=== PATIENT | male | born 1960 | race Caucasian/White ===

== ENCOUNTER 2021-04-10 14:03 | Observation (INO) | payer MEDICARE ==
[2021-04-10] MEDS ORDERED: Sodium Chloride 0.9% 1000 ML 1,000 ML IV STA ×2 (14:06→15:27)
[2021-04-10] MEDS ORDERED: Sodium Chloride 0.9% 1000 ML 1,000 ML ONE ×2 (14:16→15:32)
[2021-04-10 14:30] LABS: INR 1.14 (0.8-3.0); PROTIME 13.4 SECONDS (9.4-12.5)
[2021-04-10 14:31] LABS: Hemoglobin 16.6 gm/dl (12.5-18.0); Mean Cell Volume 89.4 fl (78-100); Mean Corpuscular Hemoglobin 31.6 pg (26-32); Mean Corpuscular Hgb Concent. 35.3 g/dl (32-36); Mean Platelet Volume 10.7 fl (7.5-11.0); Platelet Count 258 K/mm3 (150-450); Red Blood Count 5.26 M/mm3 (4.1-5.6); Red Cell Distribution Width 12.6 % (11.5-14.0); White Blood Count 8.9 K/mm3 (4.0-10.5)
[2021-04-10 14:33] LABS: PTT 32.1 SECONDS (25.1-36.5)
--- NOTE | 2021-04-10 14:42 | XRAY ---
Indication: Positive Covid 19. Comparison: None Portable chest demonstrates diffuse bilateral patchy airspace disease without consolidation/large effusion. Remaining heart and bony thorax normal.
[2021-04-10 14:43] LABS: ALBUMIN 3.9 g/dL (3.5-5.0); ANION GAP 16.5 MEQ/L (5-15); BILIRUBIN,TOTAL 0.9 mg/dL (0.2-1.3); Calcium 9.6 mg/dL (8.4-10.2); Creatinine 1 1.32 mg/dL (0.66-1.25); EST GLOMERULAR FILTRATION RATE 58.4 ML/MIN; NT PRO BNP 91.5 pg/mL (0-900); Potassium 4.4 mmol/L (3.5-5.1); Total Protein 7.3 g/dL (6.3-8.2)
[2021-04-10 14:54] LABS: Lymphocytes 4 % (24-44); Monocyte 3 % (0.0-12.0); Neutrophils 93 % (36.-66.); Platelet Estimate NORMAL (NORMAL); Total Cells Counted 100
--- NOTE | 2021-04-10 15:06 | ERPHSYRPT ---
- History of Present Illness Source: patient Exam Limitations: no limitations Patient Subjective Stated Complaint: SOB Triage Nursing Assessment: Patient brought back to ED via w/c and transferred to bed per self. Patient A+O X3. Patient's skin flushed, warm and dry. Patient complains of SOB, fever, cough, bodyaches, headaches and fatigue since last week. Patient took home binax covid test on 04/03/2021 which was positive. [facility] and initial sat was 85% on room air. Patient placed on 4 liters per N/C at [facility]. lungs clear a/p timur. Physician History: 61 yo wm w +CV19 test at home sent from infusion clinic for low sats. Pt has had fever/cough/minimal coryza/N/V/D/myalgias. He is unvaccinated and has had symptoms x9 days. Pt has DM/HTN. Timing/Duration: other (9 days) Possible Cause: no prior episodes Modifying Factors: Improves With: activity, coughing Associated Symptoms: fever, chills, cough, headache, muscle aches, nasal congestion, nasal drainage, shortness of breath, sore throat, No dizziness, No earache, No facial pain, No lightheadedness Allergies/Adverse Reactions: No Known Drug Allergies Allergy (Unverified 09/23/17 14:13) Home Medications: Celecoxib [Celebrex] 200 mg PO DAILY 09/23/17 [History] Duloxetine HCl [Cymbalta] 30 mg PO DAILY 09/23/17 [History] Gabapentin 300 mg PO DAILY 09/23/17 [History] Lisinopril 10 mg [Zestril 10 MG] 10 mg PO DAILY 09/23/17 [History] Metoprolol Succinate 100 mg PO DAILY 09/23/17 [History] PANTOPRAZOLE 40 mg Tablet [Protonix 40MG Tablet] 40 mg PO DAILY 09/23/17 [History] Sildenafil Citrate [Viagra] 100 mg PO UD 09/23/17 [History] Tizanidine HCl 4 mg [Zanaflex 4 MG] 4 mg PO HS 09/23/17 [History] Hx Influenza Vaccination/Date Given: No Hx Pneumococcal Vaccination/Date Given: No Immunizations Up to Date: Yes Travel Risk - International Travel Have you traveled outside of the country in past 3 weeks: No - Coronavirus Screening Are you exhibiting any of the following symptoms?: Yes Symptoms: Fever, Cough: New Onset, Shortness of Breath, Vomiting/Diarrhea, Head aches/Body Aches/Fatigue Close contact with a COVID-19 positive Pt in past 14-21 Days: No - Vaccine Status Have you recieved a Covid-19 vaccination: No - Review of Systems Constitutional: No Symptoms, Fever, Chills, Fatigue, Lethargy Eyes: No Symptoms Ears, Nose, & Throat: No Symptoms, Nose Congestion, Nose Discharge, Throat Pain Respiratory: No Symptoms, Cough, Dyspnea, Dyspnea on Exertion (DE JESUS) Cardiac: No Symptoms Abdominal/Gastrointestinal: No Symptoms, Nausea, Vomiting, Diarrhea Genitourinary Symptoms: No Symptoms Musculoskeletal: No Symptoms, Arthralgias, Myalgias Skin: No Symptoms Neurological: No Symptoms Psychological: No Symptoms Endocrine: No Symptoms Hematologic/Lymphatic: No Symptoms Immunological/Allergic: No Symptoms - Past Medical History Pertinent Past Medical History: Yes Neurological History: No Pertinent History ENT History: No Pertinent History Cardiac History: High Cholesterol, Hypertension Respiratory History: No Pertinent History Endocrine Medical History: Diabetes Type II Musculoskeletal History: No Pertinent History GI Medical History: No Pertinent History History: No Pertinent History Psycho-Social History: Depression Male Reproductive Disorders: No Pertinent History - Past Surgical History Past Surgical History: Yes Neuro Surgical History: No Pertinent History Cardiac: No Pertinent History Respiratory: No Pertinent History Gastrointestinal: No Pertinent History Genitourinary: No Pertinent History Musculoskeletal: Orthopedic Surgery Male Surgical History: No Pertinent History Other Surgical History: disc replaced in neck 2008. shattered heal 5 years ago - Social History Smoking Status: Never smoker Exposure to second hand smoke: No Drug Use: marijuana Patient Lives Alone: No Significant Family History: no pertinent family hx - Nursing Vital Signs Nursing Vital Signs: Initial Vital Signs Temperature 99.8 F 04/10/21 14:06 Pulse Rate 92 H 04/10/21 14:06 Respiratory Rate 21 04/10/21 14:06 O2 Sat by Pulse Oximetry 95 04/10/21 14:06 Pain Scale Pain Intensity 0 WNL - Physical Exam General Appearance: no apparent distress Eye Exam: PERRL/EOMI, eyes nml inspection Ears, Nose, Throat Exam: normal ENT inspection, TMs normal, pharynx normal, moist mucous membranes Neck Exam: normal inspection, non-tender, supple, full range of motion, No meningismus, No mass, No Brudzinski, No Kernig's Respiratory Exam: airway intact, crackles/rales (Scattered), No respiratory distress Cardiovascular Exam: regular rate/rhythm, normal heart sounds, normal peripheral pulses, No murmur Gastrointestinal/Abdomen Exam: soft, normal bowel sounds, No tenderness Back Exam: normal inspection Extremity Exam: normal inspection, normal range of motion Neurologic Exam: alert, oriented x 3, cooperative, fire chief II-XII nml as tested, normal mood/affect, nml cerebellar function, nml station & gait, sensation nml, No motor deficits, No sensory deficit Skin Exam: normal color, warm, dry Lymphatic Exam: No adenopathy SpO2 Interpretation: normal SpO2: 95 O2 Delivery: Nasal Cannula - Course Nursing assessment & vital signs reviewed: Yes EKG Interpreted by Me: RATE (NSR/R91/Normal QT-QTc/No acute ST segment changes) - Radiology Exams Chest X-ray Interpretation: Discussed w/ radiologist (Patchy B airspace dz) Ordered Tests: Active Orders 24 hr Category Date Time Status EKG-ER Only STAT Care 04/10/21 14:06 Completed IV Insertion STAT Care 04/10/21 14:06 Completed Consistent Carbohydrate Diet 2000 Calorie Diet 04/10/21 Dinner Active CHEST 1 VIEW (PORTABLE) Routine Exams 04/11/21 16:15 Stop Req CHEST 1 VIEW (PORTABLE) Stat Exams 04/10/21 14:07 Completed CBC W DIFF AM.LAB Lab 04/11/21 04:00 Ordered CBC W DIFF Stat Lab 04/10/21 14:15 Completed CMP AM.LAB Lab 04/11/21 04:00 Ordered CMP Stat Lab 04/10/21 14:15 Completed D-DIMER QUANTITATIVE Stat Lab 04/10/21 14:15 Completed Lactic Acid Stat Lab 04/10/21 14:09 Completed Manual Differential NC Stat Lab 04/10/21 14:15 Completed NT PRO BNP Stat Lab 04/10/21 14:15 Completed PROTIME WITH INR Stat Lab 04/10/21 14:15 Completed PTT Stat Lab 04/10/21 14:15 Completed TROPONIN Q3H Lab 04/10/21 14:15 Completed TROPONIN Q3H Lab 04/10/21 18:15 Ordered TROPONIN Q3H Lab 04/10/21 21:15 Ordered TROPONIN Q3H Lab 04/11/21 00:15 Ordered TROPONIN Q3H Lab 04/11/21 03:15 Ordered UA W/RFX UR CULTURE Routine Lab 04/10/21 16:01 Ordered Respiratory Therapy Consult ROUTINE RT 04/10/21 16:00 Completed Transfer Order Routine Transfer 04/10/21 Completed Medication Summary Generic Name Dose Route Start Last Admin Trade Name Freq PRN Reason Stop Dose Admin Acetaminophen 650 mg 04/10/21 16:00 Tylenol 325 Mg PO 05/10/21 15:59 Q4H PRN PRN PAIN AND/OR FEVER Albuterol Sulfate 4 puff 04/10/21 19:00 Ventolin Common Canister IH 05/10/21 18:59 QIDRT [facility] Dexamethasone Sodium Phosphate 6 mg 04/11/21 10:00 Decadron 10mg Inj. IV 05/11/21 09:59 DAILY [facility] Enoxaparin Sodium 40 mg 04/11/21 10:00 Enoxaparin Sodium SQ 05/11/21 09:59 DAILY [facility] Famotidine 20 mg 04/10/21 22:00 Pepcid 20 Mg Vial IV 05/10/21 21:59 Q12HT RODO Remdesivir 200 mg/ Sodium 250 mls @ 125 mls/hr 04/10/21 16:04 Chloride IV 04/10/21 18:03 ONCE ONE Remdesivir 100 mg/ Sodium 100 mls @ 100 mls/hr 04/11/21 16:04 Chloride IV 04/14/21 17:03 Q24H [facility] Sodium Chloride 1,000 mls @ 100 mls/hr 04/10/21 16:15 Sodium Chloride 0.9% 1000 Ml IV 05/10/21 16:14 .Q10H RODO Insulin Human Lispro 0 unit 04/10/21 16:00 Humalog SQ 05/10/21 15:59 UD PRN HYPERGLYCEMIA Ipratropium [place] 2 gm 04/10/21 16:00 Atrovent Hfa Mdi IH 05/10/21 15:59 UD RODO Ondansetron HCl 4 mg 04/10/21 16:00 Zofran 4 Mg/2 Ml Vial IV 05/10/21 15:59 Q6H PRN PRN NAUSEA/VOMITING Pantoprazole Sodium 40 mg 04/11/21 10:00 Protonix 40 Mg Iv IV 05/11/21 09:59 Q24H10 RODO Discontinued Medications Generic Name Dose Route Start Last Admin Trade Name [place] PRN Reason Stop Dose Admin Dexamethasone Sodium Phosphate 10 mg 04/10/21 15:26 04/10/21 15:36 Decadron 10mg Inj. IV 04/10/21 15:27 10 mg STAT ONE Administration Dexamethasone Sodium Phosphate Confirm 04/10/21 15:32 Decadron 10mg Inj. Administered 04/10/21 15:33 Dose 10 mg .ROUTE .STK-MED ONE Sodium Chloride 1,000 mls @ 999 mls/hr 04/10/21 14:06 04/10/21 15:25 Sodium Chloride 0.9% 1000 Ml IV 04/10/21 15:06 Infused .Q1H1M STA Infusion Sodium Chloride Confirm 04/10/21 14:16 Sodium Chloride 0.9% 1000 Ml Administered 04/10/21 14:17 Dose 1,000 mls @ ud .ROUTE .STK-MED ONE Sodium Chloride 1,000 mls @ 999 mls/hr 04/10/21 15:27 04/10/21 15:36 Sodium Chloride 0.9% 1000 Ml IV 04/10/21 16:27 999 mls/hr .Q1H1M STA Administration Sodium Chloride Confirm 04/10/21 15:32 Sodium Chloride 0.9% 1000 Ml Administered 04/10/21 15:33 Dose 1,000 mls @ ud .ROUTE .STK-MED ONE Lab/Rad Data: Laboratory Result Diagrams 04/10/21 14:15 04/10/21 14:15 Laboratory Results 04/10/21 04/10/21 04/10/21 Range/Units 15:01 14:15 14:15 WBC (4.0-10.5) K/mm3 RBC (4.1-5.6) M/mm3 Hgb (12.5-18.0) gm/dl Hct (42-50) % MCV (78-100) fl MCH (26-32) pg MCHC (32-36) g/dl RDW (11.5-14.0) % Plt Count (150-450) K/mm3 MPV (7.5-11.0) fl Segmented Neutrophils (36.-66.) % Lymphocytes (Manual) (24-44) % Monocytes (Manual) (0.0-12.0) % Platelet Estimate (NORMAL) RBC Morphology PT 13.4 H (9.4-12.5) SECONDS INR 1.14 (0.8-3.0) APTT 32.1 (25.1-36.5) SECONDS D-Dimer 1163 H* (215-500) ng/mL Sodium (137-145) mmol/L Potassium (3.5-5.1) mmol/L Chloride (98-107) mmol/L Carbon Dioxide (22-30) mmol/L Anion Gap (5-15) MEQ/L BUN (9-20) mg/dL Creatinine (0.66-1.25) mg/dL Estimated GFR ML/MIN Glucose (74-106) mg/dL Lactic Acid (0.4-2.0) Calcium (8.4-10.2) mg/dL Total Bilirubin (0.2-1.3) mg/dL AST (17-59) U/L ALT (0-50) U/L Alkaline Phosphatase (38-126) U/L Troponin I < 0.012 (0.000-0.034) ng/mL NT-Pro-B Natriuret Pep (0-900) pg/mL Serum Total Protein (6.3-8.2) g/dL Albumin (3.5-5.0) g/dL SARS-CoV-2 (PCR) POSITIVE A (NEGATIVE) 04/10/21 04/10/21 04/10/21 Range/Units 14:15 14:15 14:09 WBC 8.9 (4.0-10.5) K/mm3 RBC 5.26 (4.1-5.6) M/mm3 Hgb 16.6 (12.5-18.0) gm/dl Hct 47.0 (42-50) % MCV 89.4 (78-100) fl MCH 31.6 (26-32) pg MCHC 35.3 (32-36) g/dl RDW 12.6 (11.5-14.0) % Plt Count 258 (150-450) K/mm3 MPV 10.7 (7.5-11.0) fl Segmented Neutrophils 93 H (36.-66.) % Lymphocytes (Manual) 4 L (24-44) % Monocytes (Manual) 3 (0.0-12.0) % Platelet Estimate NORMAL (NORMAL) RBC Morphology NORMAL PT (9.4-12.5) SECONDS INR (0.8-3.0) APTT (25.1-36.5) SECONDS D-Dimer (215-500) ng/mL Sodium 135 L (137-145) mmol/L Potassium 4.4 (3.5-5.1) mmol/L Chloride 101 (98-107) mmol/L Carbon Dioxide 22 (22-30) mmol/L Anion Gap 16.5 H (5-15) MEQ/L BUN 35 H (9-20) mg/dL Creatinine 1.32 H (0.66-1.25) mg/dL Estimated GFR 58.4 ML/MIN Glucose 132 H (74-106) mg/dL Lactic Acid 1.2 (0.4-2.0) Calcium 9.6 (8.4-10.2) mg/dL Total Bilirubin 0.90 (0.2-1.3) mg/dL AST 35 (17-59) U/L ALT 17 (0-50) U/L Alkaline Phosphatase 58 (38-126) U/L Troponin I (0.000-0.034) ng/mL NT-Pro-B Natriuret Pep 91.5 (0-900) pg/mL Serum Total Protein 7.3 (6.3-8.2) g/dL Albumin 3.9 (3.5-5.0) g/dL SARS-CoV-2 (PCR) (NEGATIVE) - Progress Progress: improved Progress Note: 04/10/21 15:[address] Roldan 2L NS bolus 10mg IV Decadron Counseled pt/family regarding: lab results, diagnosis, rad results - Departure Departure Disposition: Observation Clinical Impression: COVID-19 Condition: Stable Critical Care Time: No
[2021-04-10] MEDS ORDERED: DECADRON 10MG INJ. IV ONE (15:26)
[2021-04-10] MEDS ORDERED: DECADRON 10MG INJ. ONE (15:32)
[2021-04-10] MEDS ORDERED: Zofran 4 MG/2 ML VIAL IV PRN (16:00)
[2021-04-10] MEDS ORDERED: HUMALOG SQ PRN ×2 (16:00→18:18)
[2021-04-10] MEDS ORDERED: Atrovent HFA MDI IH SCH ×2 (16:00→22:00)
[2021-04-10] MEDS ORDERED: TYLENOL 325 MG PO PRN (16:00)
[2021-04-10] MEDS ORDERED: REMDESIVIR 200 MG in Sodium Chloride 0.9% 250 ML 250 ML IV ONE (16:04)
[2021-04-10] MEDS: celeBREX 100 MG PO SCH (18:07)
[2021-04-10] MEDS: Cymbalta 30 MG Capsule PO SCH (18:07)
[2021-04-10] MEDS: Zestril 10 MG PO SCH (18:08)
[2021-04-10] MEDS: Toprol Xl 100 MG PO SCH (18:08)
[2021-04-10] MEDS ORDERED: TYLENOL EXTRA STRENGTH 500 MG PO PRN (18:09)
[2021-04-10] MEDS ORDERED: Ativan 2 MG/1 ML VIAL IV PRN (18:09)
[2021-04-10] MEDS: ENOXAPARIN SODIUM SQ SCH (18:49)
[2021-04-10] MEDS: Sodium Chloride 0.9% 1000 ML 1,000 ML IV SCH (18:49)
[2021-04-10] MEDS: PROTONIX 40 MG IV IV SCH (18:53)
[2021-04-10] MEDS: Pepcid 20 MG VIAL IV SCH (21:33)
[2021-04-10] MEDS: Zanaflex 4 MG PO SCH ×2 (21:35→21:52)
[2021-04-10] MEDS ORDERED: Lomotil PO PRN (23:12)
[2021-04-11] MEDS: HYDROCODONE-CHLORPHEN ER SUSP PO PRN ×2 (04:37→18:07)
[2021-04-11 05:34] LABS: Hemoglobin 15.2 gm/dl (12.5-18.0); Mean Cell Volume 90.7 fl (78-100); Mean Corpuscular Hemoglobin 31.3 pg (26-32); Mean Corpuscular Hgb Concent. 34.5 g/dl (32-36); Mean Platelet Volume 10.7 fl (7.5-11.0); Platelet Count 297 K/mm3 (150-450); Red Blood Count 4.85 M/mm3 (4.1-5.6); Red Cell Distribution Width 12.6 % (11.5-14.0)
[2021-04-11 05:52] LABS: ALBUMIN 3.3 g/dL (3.5-5.0); ALKALINE PHOSPHATASE 46 U/L (38-126); BLOOD UREA NITROGEN 26 mg/dL (9-20); CHLORIDE 105 mmol/L (98-107); Calcium 8.9 mg/dL (8.4-10.2); Carbon Dioxide 21 mmol/L (22-30); Creatinine 1 0.88 mg/dL (0.66-1.25); EST GLOMERULAR FILTRATION RATE > 60.0 ML/MIN; Glucose 148 mg/dL (74-106); Potassium 4.7 mmol/L (3.5-5.1); SGOT/AST 28 U/L (17-59); SGPT/ALT 15 U/L (0-50); SODIUM 136 mmol/L (137-145); Total Protein 6.4 g/dL (6.3-8.2)
--- NOTE | 2021-04-11 08:46 | XRAY ---
Indication: Positive Covid 19. Comparison: One day earlier. Portable apical lordotic chest unchanged again demonstrating diffuse bilateral patchy airspace disease without consolidation/large effusion. Heart is not enlarged. No new cardiopulmonary abnormalities.
[2021-04-11 08:49] LABS: BAND 1 % (0.0-2.0); Eosinophil 1 % (0.00-3.0); Lymphocytes 12 % (24-44); Monocyte 7 % (0.0-12.0); Neutrophils 79 % (36.-66.); Platelet Estimate NORMAL (NORMAL); Total Cells Counted 100
[2021-04-11] MEDS ORDERED: REMDESIVIR 100 MG in Sodium Chloride 0.9% 100 ML BAG 100 ML IV SCH ×2 (10:00→18:00)
[2021-04-11 10:10] LABS: Appearance CLEAR (CLEAR); Bilirubin NEGATIVE (NEGATIVE); Blood NEGATIVE Ery/ul (0-5); Glucose NEGATIVE (NEGATIVE); Ketones SMALL (NEGATIVE); Leukocyte Esterase NEGATIVE (NEGATIVE); Mucus SLIGHT /HPF (NEGATIVE); Nitrite NEGATIVE (NEGATIVE); Protein,Urine Dip 30 (Negative); Specific Gravity 1.025 (1.005-1.025); Urobilinogen 2 mg/dL (0-1)
[2021-04-11] MEDS: OLUMIANT PO SCH (10:48)
[2021-04-11] MEDS: Zestril 10 MG PO SCH (10:49)
[2021-04-11] MEDS: DECADRON 10MG INJ. IV SCH (10:49)
[2021-04-11] MEDS: Toprol Xl 100 MG PO SCH (10:49)
[2021-04-11] MEDS: Cymbalta 30 MG Capsule PO SCH (10:49)
[2021-04-11] MEDS: ENOXAPARIN SODIUM SQ SCH (10:51)
[2021-04-11] MEDS: PROTONIX 40 MG IV IV SCH (10:51)
--- NOTE | 2021-04-11 11:07 | HP ---
CHIEF COMPLAINT: Shortness of breath, coughing, fever, chills, aching all over. Positive COVID test. HISTORY OF PRESENT ILLNESS: The patient had the above symptoms ever since 04/03/2021. He went to [facility] today for evaluation. Initially, his O2 saturation was 85% and he was placed on 4 liters and sent to the emergency room. He said he has diarrhea daily because he is on Metformin. No real vomiting. He is unvaccinated. He does not particularly where he got it at. CORONAVIRUS SCREENING: He is unvaccinated. VACCINE HISTORY: No influenza. No pneumonia. No COVID. TRAVEL RISK: He has not been out of the country or out of the state really in the last three weeks. No known contact with anybody with COVID. HOME MEDICATIONS: Celebrex 200 q.d., Cymbalta 30 q.d., gabapentin 300 h.s., lisinopril 10 q.d., metoprolol 100 q.d., Protonix 40 q.d., Viagra 100 PRN, Zanaflex 4 mg h.s. ALLERGIES: NKDA. PAST MEDICAL HISTORY: Diabetes mellitus well controlled with diet and Metformin. He has had diabetes for approximately three years, l ost 20 pounds and it is under control now he states with medicine. Arthritis of the neck post-surgery. Some hypertension well controlled. Gastroesophageal reflux disease. Erectile dysfunction. REVIEW OF SYSTEMS: CONSTITUTIONAL: The patient had fever, hypoxia, lethargy, aching, chills. HEENT: Taste is intact. ABDOMEN: He has normal small amount of diarrhea and he has been a little bit nauseated. CARDIAC: Hypertension for several years. No heart problems. EXTREMITIES: No complaints except malaise, weakness. MUSCULOSKELETAL: Neck pain controlled with medications for which he is on Disability. SOCIAL HISTORY: The patient is , has numerous children. 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 PHYSICAL EXAMINATION: The patient is alert, orientated pleasant gentleman. He is not obese, in no distress. VITAL SIGNS: Temperature 98F, pulse 90, respirations 20. O2 saturation presently 95% on 2 liters. HEENT: Pupils equal and reactive to light. NECK: Supple. Decreased range of motion. CHEST: Crackles and rales bilateral. CVS: Regular rate. No murmurs or gallops. ABDOMEN: Soft. No tenderness or organomegaly. EXTREMITIES: Normal lower back. No edema. No cyanosis. Good pulses. LAB DATA AND TESTS: Chest x-ray showed bilateral pneumonia typical for COVID. White count was normal. D-dimer 1163. White count 8.9, hemoglobin 16. Liver enzymes normal. Lactic acid 1.2. Today's COVID test was positive. Glucose 132. Sodium 135. IMPRESSION: 1) COVID pneumonia with hypoxia. 2) Diabetes mellitus. 3) Hypertension. 4) Degenerative neck disease post-surgery. PLAN: The patient will be treated with the usual COVID medicines of Remdesivir, Decadron, anticoagulated and placed on insulin coverage. PROGNOSIS: [place] to be good.
[2021-04-11] MEDS: celeBREX 100 MG PO SCH (11:09)
[2021-04-11] MEDS ORDERED: Protonix 40MG Tablet PO PRN (11:23)
[2021-04-11] MEDS: Pepcid 20 MG VIAL IV SCH ×2 (11:30→21:53)
[2021-04-11] MEDS ORDERED: Zanaflex 4 MG PO PRN (11:30)
[2021-04-11] MEDS: Sodium Chloride 0.9% 1000 ML 1,000 ML IV SCH ×3 (17:09→20:18)
[2021-04-11] MEDS: NEURONTIN 300 MG PO SCH ×2 (17:53→18:05)
[2021-04-12 04:12] VITALS: O2SAT 93
[2021-04-12 06:03] LABS: Hematocrit 43.1 % (42-50); Hemoglobin 14.7 gm/dl (12.5-18.0); Mean Cell Volume 90.5 fl (78-100); Mean Corpuscular Hemoglobin 30.9 pg (26-32); Mean Corpuscular Hgb Concent. 34.1 g/dl (32-36); Mean Platelet Volume 10.5 fl (7.5-11.0); Platelet Count 399 K/mm3 (150-450); Red Blood Count 4.76 M/mm3 (4.1-5.6); Red Cell Distribution Width 12.8 % (11.5-14.0); White Blood Count 7.9 K/mm3 (4.0-10.5)
[2021-04-12 08:20] VITALS: BP 126/80; PULSE 75
[2021-04-12] MEDS: VENTOLIN COMMON CANISTER IH SCH ×2 (08:26→08:27)
[2021-04-12] MEDS: Sodium Chloride 0.9% 1000 ML 1,000 ML IV SCH (08:26)
[2021-04-12] MEDS: Pepcid 20 MG VIAL IV SCH (08:27)
[2021-04-12] MEDS: Zestril 10 MG PO SCH (08:59)
[2021-04-12] MEDS: Toprol Xl 100 MG PO SCH (08:59)
[2021-04-12] MEDS: OLUMIANT PO SCH (08:59)
[2021-04-12] MEDS: NEURONTIN 300 MG PO SCH (08:59)
[2021-04-12] MEDS: Cymbalta 30 MG Capsule PO SCH (08:59)
[2021-04-12] MEDS: DECADRON 10MG INJ. IV SCH (08:59)
[2021-04-12] MEDS: celeBREX 100 MG PO SCH (08:59)
[2021-04-12] MEDS: ENOXAPARIN SODIUM SQ SCH (09:00)
== END 2021-04-12 11:20 | disposition home or self-care (01) ==
LOC: ED 14:03 → MED SURG 16:35
PROVIDERS: ADMIT Family Medicine; ATTEND Family Medicine
DX: U07.1 COVID-19 (principal); J12.82 Pneumonia due to coronavirus disease 2019; E11.9 Type 2 diabetes mellitus without complications; I10 Essential (primary) hypertension; Z79.899 Other long term (current) drug therapy; M50.30 Other cervical disc degeneration, unspecified cervical region; Z20.822 Contact with and (suspected) exposure to COVID-19; E78.00 Pure hypercholesterolemia, unspecified; R09.02 Hypoxemia
CPT/HCPCS: 36000; 36415; 71045; 80053; 81001; 82947; 83036; 83605; 83880; 84484; 85025; 85027; 85379; 85610; 85730; 93005; 93268; 94762; 96360; 96374; 99285; G0378; U0003; J1100; J1650; J2060; A9270-GY